=== PATIENT | male | born 1980 | race Asian ===

== ENCOUNTER 2019-11-13 23:41 | Emergency (ER) | payer BC ==
[~2019-11-13] VITALS: Ht 172.7 cm; Wt 94.3 kg
[2019-11-14 00:27] LABS: BASOPHIL % 0.3 % (0-2); PLATELET COUNT 299 x10^3mcL (130-400); RED CELL DISTRIBUTION WIDTH 13.2 % (11.5-14.5)
[2019-11-14 00:35] LABS: CARBON DIOXIDE 28.5 mmol/L (21-32); CHLORIDE SERUM 103 mmol/L (98-107); CREATININE SERUM 1.1 mg/dL (0.7-1.3); GFR1 > 60 mL/min; GLUCOSE SERUM 114 mg/dL (74-106); POTASSIUM SERUM 3.8 mmol/L (3.5-5.1); SODIUM SERUM 139 mmol/L (136-145)
[2019-11-14 00:40] LABS: ALBUMIN 3.9 g/dL (3.4-5.0); ALKALINE PHOSPHATASE 37 U/L (46-116); ALT/SGPT 57 U/L (16-63); AST/SGOT 14 U/L (15-37); BILIRUBIN TOTAL 0.4 mg/dL (0.20-1.00); LIPASE 171 IU/L (73-393); TOTAL PROTEIN, SERUM 7.5 g/dL (6.4-8.2)
[2019-11-14 02:05] VITALS: BP 135/85
== END 2019-11-14 02:00 | disposition home or self-care (01) ==
LOC: ED 23:41
PROVIDERS: Emergency Medicine
DX: N20.0 Calculus of kidney (principal)
CPT/HCPCS: J1885; J2405; J3010; J7030

== ENCOUNTER 2019-12-12 09:12 | Inpatient (IN) | payer BC ==
[~2019-12-12] VITALS: Ht 182.9 cm; Wt 93.6 kg
[2019-12-12 09:28] VITALS: Ht 182.9 cm; Wt 93.6 kg
[2019-12-12 10:43] LABS: CALCIUM 8.5 mg/dL (8.5-10.1); CARBON DIOXIDE 26.4 mmol/L (21-32); CHLORIDE SERUM 101 mmol/L (98-107); CREATININE SERUM 0.9 mg/dL (0.7-1.3); GFR1 > 60 mL/min; GLUCOSE SERUM 106 mg/dL (74-106); POTASSIUM SERUM 4.4 mmol/L (3.5-5.1); SODIUM SERUM 135 mmol/L (136-145)
[2019-12-12 10:55] LABS: ALBUMIN 3.8 g/dL (3.4-5.0); ALKALINE PHOSPHATASE 34 U/L (46-116); ALT/SGPT 36 U/L (16-63); AST/SGOT 13 U/L (15-37); BILIRUBIN TOTAL 0.7 mg/dL (0.20-1.00); LIPASE 113 IU/L (73-393); TOTAL PROTEIN, SERUM 7.3 g/dL (6.4-8.2)
[2019-12-12 10:56] LABS: BASOPHIL % 0.1 % (0-2); PLATELET COUNT 256 x10^3mcL (130-400); RED CELL DISTRIBUTION WIDTH 12.9 % (11.5-14.5)
[2019-12-12 12:33] LABS: microscopic required? YES; urine erythrocyte 3+ (NEGATIVE)
[2019-12-12 13:04] VITALS: BP 128/79
[2019-12-12 16:10] VITALS: BP 131/77
[2019-12-12 19:48] VITALS: BP 129/82
[2019-12-13 05:58] VITALS: BP 142/76
[2019-12-13 05:59] LABS: BASOPHIL % 0.2 % (0-2); PLATELET COUNT 228 x10^3mcL (130-400); RED CELL DISTRIBUTION WIDTH 12.7 % (11.5-14.5)
[2019-12-13 06:51] LABS: CARBON DIOXIDE 26.3 mmol/L (21-32); CHLORIDE SERUM 105 mmol/L (98-107); GFR1 > 60 mL/min; GLUCOSE SERUM 106 mg/dL (74-106); POTASSIUM SERUM 4.2 mmol/L (3.5-5.1); SODIUM SERUM 139 mmol/L (136-145)
[2019-12-13 08:10] VITALS: BP 135/73
[2019-12-13 16:43] VITALS: BP 139/73
[2019-12-13 19:50] VITALS: BP 135/72
[2019-12-14 04:52] VITALS: BP 113/67
[2019-12-14 06:09] LABS: BASOPHIL % 0.1 % (0-2); PLATELET COUNT 228 x10^3mcL (130-400)
[2019-12-14 06:29] LABS: CALCIUM 7.8 mg/dL (8.5-10.1); CARBON DIOXIDE 25.9 mmol/L (21-32); CHLORIDE SERUM 107 mmol/L (98-107); CREATININE SERUM 0.8 mg/dL (0.7-1.3); GFR1 > 60 mL/min; GLUCOSE SERUM 107 mg/dL (74-106); POTASSIUM SERUM 4.1 mmol/L (3.5-5.1); SODIUM SERUM 140 mmol/L (136-145)
[2019-12-14 08:31] VITALS: BP 116/74
[2019-12-14] MEDS ORDERED: IBU600 M2 PO (10:26)
[2019-12-14 11:10] VITALS: BP 116/74
[2019-12-14 12:59] VITALS: BP 143/85
== END 2019-12-14 15:40 | disposition home or self-care (01) | DRG 661 ==
LOC: ED 09:12 → MU 11:41
PROVIDERS: Emergency Medicine; Urology; ADMIT Internal Medicine
PROC: 0TF7XZZ Fragmentation in Left Ureter, External Approach (ICD-10-PCS; 2019-12-13)
PROC: 0T778DZ Dilation of Left Ureter with Intraluminal Device, Via Natural or Artificial Opening Endoscopic (ICD-10-PCS; principal; 2019-12-13 12:00)
DX: N13.2 Hydronephrosis with renal and ureteral calculous obstruction (principal); K59.00 Constipation, unspecified; Z90.49 Acquired absence of other specified parts of digestive tract; Z87.891 Personal history of nicotine dependence; Z80.42 Family history of malignant neoplasm of prostate
CPT/HCPCS: C2625; G0378; J0690; J1885; J2270; J2405; J2704; J3010; J7030; J7120